=== PATIENT | male | born 1945 | race Caucasian/White ===

== ENCOUNTER 2023-11-23 06:14 | Day surgery (SDC) | payer SELFPAY ==
[2023-11-16 12:26] VITALS: BMI 22.6
[2023-11-23] MEDS ORDERED: EPINEPHrine/PF 1 MG/1 ML (1:1,000) AMPULE ONE (07:44)
[2023-11-23] MEDS ORDERED: LIDOCAINE HCL 1%, 10 MG/ML (20ML VIAL) ONE (07:45)
[2023-11-23] MEDS ORDERED: GUM MASTIC/STORAX/MSAL/ALCOHOL 1 DRP DROPSBTL MC ONE (07:45)
[2023-11-23] MEDS ORDERED: BACITRACIN ZINC 15 GM TUBE TOPICAL OINTMENT ONE (07:45)
[2023-11-23] MEDS ORDERED: DEXAMETHASONE SOD PHOSPHATE 4 MG/1 ML VIAL ONE (07:53)
[2023-11-23] MEDS ORDERED: PROPOFOL 40 ML ONE (07:53)
[2023-11-23] MEDS ORDERED: ceFAZolin SODIUM 1 GM VIAL ONE (07:53)
[2023-11-23] MEDS ORDERED: ONDANSETRON 4 MG/2 ML VIAL ONE (07:53)
[2023-11-23] MEDS ORDERED: LIDOCAINE HCL/PF 2% SDV 5ML VIAL ONE (07:54)
[2023-11-23] MEDS ORDERED: MIDAZOLAM HCL 2 MG/2 ML SINGLE DOSE VIAL ONE (07:54)
[2023-11-23] MEDS ORDERED: ROCURONIUM BROMIDE 50 MG/5 ML SYRINGE ONE (07:54)
[2023-11-23] MEDS ORDERED: SEVOFLURANE 250 ML BTL ONE (15:27)
[2023-11-23] MEDS ORDERED: BUPIVACAINE HCL/PF 0.25% (2.5MG/ML) 10 ML VIAL ONE (15:36)
[2023-11-23] MEDS ORDERED: BUPIVACAINE HCL/PF 2.5 MG/ML - 30 ML VIAL IJ ONE (15:37)
[2023-11-23] MEDS: BUPIVACAINE HCL/PF 0.25% (2.5MG/ML) 10 ML VIAL IJ ONE ×2 (16:28)
[2023-11-23] MEDS ORDERED: ONDANSETRON 4 MG/2 ML VIAL IVPUSH PRN ×2 (17:11→21:27)
[2023-11-23] MEDS: LACTATED RINGERS SOLUTION 1,000 ML IV SCH (17:53)
[2023-11-23] MEDS: oxyCODONE HCL 5 MG TABLET PO PRN (18:43)
[2023-11-23] MEDS ORDERED: ZOLPIDEM TARTRATE 5 MG TABLET PO PRN (21:27)
[2023-11-23] MEDS ORDERED: ACETAMINOPHEN 325 MG TABLET (FP) PO PRN (21:27)
[2023-11-23] MEDS ORDERED: LACTATED RINGERS SOLUTION 1,000 ML IV SCH (21:30)
[2023-11-23] MEDS ORDERED: oxyCODONE HCL 5 MG TABLET PO PRN (21:33)
[2023-11-23] MEDS ORDERED: HYDROmorphone HCl 2 MG/ML VIAL IVPB PRN (21:34)
[2023-11-23] MEDS ORDERED: ONDANSETRON *ODT* 4 MG TABLET SL PRN (21:44)
[2023-11-23] MEDS: CEFAZOLIN 1 GM in DEXTROSE 5%-WATER - 50 ML IVPB SCH (22:10)
[2023-11-23] MEDS: DOXYCYCLINE HYCLATE 100 MG CAPSULE PO SCH (22:10)
[2023-11-23] MEDS: ENOXAPARIN NA (PORCINE) 40 MG/0.4 ML DISP.SYRIN SQ ONE (23:13)
[2023-11-24] MEDS: TAMSULOSIN HCL 0.4 MG CAP PO ONE (01:30)
[2023-11-24 03:06] VITALS: RESP 18
[2023-11-24] MEDS: oxyCODONE HCL 5 MG TABLET PO PRN (03:12)
[2023-11-24 09:47] VITALS: BP 121/58; PULSE 72; TEMP 98.6
== END 2023-11-24 11:25 | disposition home or self-care (01) ==
LOC: FASU 06:14 → FASUSAT 06:14 → FM/S 18:23 → FASUSAT 11-24 11:25
PROVIDERS: ATTEND Surgery
CPT/HCPCS: 94760